=== PATIENT | male | born 1965 | race Hispanic/Latino ===

== ENCOUNTER 2018-02-26 15:57 | Inpatient (IN) | payer BC ==
[2018-02-26] MEDS ORDERED: Acetaminophen 500 MG TAB ONE (16:07)
[2018-02-26 16:48] LABS: Mean Corpuscular HGB CONC 34.5 g/dL (32.0-36.0); Mean Corpuscular Volume 89.9 fL (78.0-98.0); Mean Platelet Volume 7.7 fL (7.4-10.4); Platelet Count 257 thou/uL (130-400); RBC Distribution Width 13.9 % (11.5-14.5); Red Blood Cell (RBC) Count 4.19 mill/uL (4.70-6.10); White Blood Cell (WBC) Count 14.9 thou/uL (4.8-10.8)
--- NOTE | 2018-02-26 16:52 | RAD ---
SINGLE VIEW CHEST: Date: 02/26/18 COMPARISON: None. HISTORY: Cough and abscess. FINDINGS: Single view of the chest shows a normal sized cardiomediastinal silhouette. There is no evidence of c onsolidation, mass, or pleural effusion. The bones are unremarkable. IMPRESSION: No evidence of acute cardiopulmonary disease. POS: [facility]
[2018-02-26 17:06] LABS: Band 19 % (5-11); Lymphocytes 14 % (21-51); MDiff Complete? YES; Metamyelocyte 2 % (0-0); Monocytes 6 % (0-10); Myelocyte 1 % (0-0); Neutrophil 57 % (42-75)
[2018-02-26] MEDS ORDERED: Ibuprofen 800 MG TAB ONE (17:11)
[2018-02-26 17:14] LABS: ALT (SGPT) 13 U/L (8-55); AST (SGOT) 12 U/L (5-34); Alkaline Phosphatase 103 U/L (40-150); BUN (Urea Nitrogen) 23 mg/dL (8.4-25.7); Bilirubin, Total 0.8 mg/dL (0.2-1.2); Calc. Creatinine Clearance 0 mL/min (70-130); Carbon Dioxide 19 mmol/L (22-29); Estimated GFR-MDRD 44; Globulin 4.3 g/dL (2.4-3.5); Glucose 187 mg/dL (70-105); Protein, Total 8.3 g/dL (6.0-8.3)
[2018-02-26] MEDS ORDERED: Adacel (T-DAP) 0.5 ML VIAL ONE (17:15)
[2018-02-26 17:24] LABS: Anion Gap 16 mmol/L (10-20); Chloride 100 mmol/L (98-107); Potassium 4.2 mmol/L (3.5-5.1); Sodium 130 mmol/L (136-145)
[2018-02-26] MEDS ORDERED: Lidocaine 1% w/Epinephrine 1:100K 20 ML VIAL ONE (17:33)
[2018-02-26] MEDS ORDERED: Midazolam HCl 2 mg/2 ml Vial ONE (17:33)
[2018-02-26] MEDS ORDERED: Cefepime 2 GM in Sodium Chloride 0.9% 100 ML IVPB SCH (17:45)
[2018-02-26] MEDS ORDERED: Ondansetron ODT 4 MG TAB SL PRN (21:29)
[2018-02-26] MEDS ORDERED: Sodium Chloride 0.9% 1,000 ML IV SCH (21:29)
[2018-02-26] MEDS ORDERED: Ondansetron HCl/PF 4 MG/2 ML Vial IVP PRN (21:29)
[2018-02-26 21:51] VITALS: BMI 43.0
--- NOTE | 2018-02-26 22:15 | PDOC.FPRHP ---
- History of Present Illness Chief Complaint: Back pain and fever History of Present Illness: 53 yo M with a hx of DM2, HTN, and HLD presents to the ED with a 3 day hx of Rt mid back lesion with pain, erythema, and swelling. Two weeks prior had Left T5 distribution shingles. He thought maybe he had a pimple, was bitten by something , or the lesion began because of the shingles. Then he began having fever, body aches, chills, and notice the wound increasing in size. Denied n/v, CP, or SOB. + cough for past few days. In the ER met sepsis criteria with HR 130s, 102 F, WBC 14.9 (Bands 19). Cr was 1.65. The lesion was measured to be 16x10 cm. Lesion was ultrasounded and I&D was performed with 2 loops drains inserted, 150 mL removed. He was also give 3L of fluid; tyelenol and IBP; vanc and cefepime were started. - Allergies/Adverse Reactions Allergies Allergy/AdvReac Type Severity Reaction Status Date / Time No Known Allergies Allergy Verified 02/26/18 21:38 - Home Medications Medication Instructions Recorded Confirmed Type Amlodipine [Norvasc] 10 mg PO DAILY 02/26/18 02/26/18 History Aspirin 325 mg PO DAILY 02/26/18 02/26/18 History Insulin NPH/Reg Insulin Hm 55 unit SC 1700 02/26/18 02/26/18 History [HumuLIN 70/30] Insulin NPH/Reg Insulin Hm 60 unit SC 1100 02/26/18 02/26/18 History [HumuLIN 70/30] Losartan Potassium [Losartan 100 mg PO DAILY 02/26/18 02/26/18 History Potassium] Metoprolol Tartrate [Lopressor] 50 mg PO BID 02/26/18 02/26/18 History Pravastatin Sodium [Pravachol] 40 mg PO HS 02/26/18 02/26/18 History metFORMIN HCl 1,000 mg PO BID-WM 02/26/18 02/26/18 History - History PMHx:T2DM, HTN uncontrolled, HLD PSHx: None FHx: T2DM: Mother, brother Social: 1 PPD, 5 years, drinks about 10 beers each weekend, denies elicit drug use. 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 - Review of Systems General: reports: fever/chills, fatigue. denies: weight/appetite/sleep changes Eyes: denies: eye pain, vision changes ENT: denies: nasal congestion, rhinorrhea, other (denied sore throat) Respiratory: reports: cough. denies: congestion, shortness of breath, exercise intolerance Cardiovascular: denies: chest pain, palpitation, edema Gastrointestinal: denies: nausea, vomiting, diarrhea, constipation, abdominal pain, GI bleeding Genitourinary: reports: polyuria. denies: incontinence, dysuria, discharge Skin: reports: rashes, lesions, other (Rt mid back lesion swollen, warm, painful , and erythematous. Left side rash from recent shingles.). denies: jaundice, itching Musculoskeletal: denies: pain, tenderness, stiffness, swelling, arthritis/ arthralgias Neurological: denies: numbness, seizure, weakness Psychological: denies: anxiety, depression - Vital signs BP: [94/72] HR: [88] RR: [12] Tmax: [102.7] Pox: [98]% on [RA] Wt: [113.53] - Physical Exam Constitutional: NAD, awake, alert and oriented, well developed HEENT: normocephalic and atraumatic, PERRLA, MMM, other (upper and lower dentures) Neck: supple, no LAD, other (nontender) Chest: other (Purple macules along left T5 distribution from sternum to mid back ) Heart: RRR, normal S1/S2, no murmurs/rubs/gallops, pulses present, no edema Lungs: CTAB, no respiratory distress, good air movement, no wheezing, no retractions Abdomen: soft, non-tender Musculoskeletal: normal structure, normal tone, ROM grossly normal Neurological: no focal deficit Skin: other (16x10 cm lesion on Rt mid back. Erythematous, warm, indurated, weeping red-tinged fluid s/p I&D. [address] Psychiatric: normal mood and affect, good judgment and insight FMR H&P: Results - Labs Result Diagrams: 02/27/18 03:57 02/27/18 03:57 Lab results: WBC 14.9 thou/uL (4.8-10.8) H 02/26/18 16:23 Hgb 13.0 g/dL (14.0-18.0) L 02/26/18 16:23 Hct 37.6 % (42.0-52.0) L 02/26/18 16:23 MCV 89.9 fL (78.0-98.0) 02/26/18 16:23 Plt Count 257 thou/uL (130-400) 02/26/18 16:23 Band Neuts % (Manual) 19 % (5-11) H 02/26/18 16:23 Sodium 130 mmol/L (136-145) L 02/26/18 16:23 Potassium 4.2 mmol/L (3.5-5.1) 02/26/18 16:23 Chloride 100 mmol/L (98-107) 02/26/18 16:23 Carbon Dioxide 19 mmol/L (22-29) L 02/26/18 16:23 BUN 23 mg/dL (8.4-25.7) 02/26/18 16:23 Creatinine 1.65 mg/dL (0.6-1.3) H 02/26/18 16:23 Glucose 187 mg/dL (70-105) H 02/26/18 16:23 Lactic Acid 1.6 mmol/L (0.5-2.2) 02/26/18 16:23 Calcium 10.0 mg/dL (7.8-10.44) 02/26/18 16:23 Total Bilirubin 0.8 mg/dL (0.2-1.2) 02/26/18 16:23 AST 12 U/L (5-34) 02/26/18 16:23 ALT 13 U/L (8-55) 02/26/18 16:23 Alkaline Phosphatase 103 U/L (40-150) 02/26/18 16:23 Serum Total Protein 8.3 g/dL (6.0-8.3) 02/26/18 16:23 Albumin 4.0 g/dL (3.5-5.0) 02/26/18 16:23 - Radiology Interpretation Other Additional comment: US abscess Chest x-ray Additional comment: No acute cardiopulmonary findings FMR H&P: A/P - Problem List (1) Sepsis Current Visit: Yes Status: Acute Priority: High Code(s): A41.9 - SEPSIS, UNSPECIFIED ORGANISM Qualifiers: Sepsis type: sepsis due to unspecified organism Qualified Code(s): A41.9 - Sepsis, unspecified organism (2) Abscess of back Current Visit: Yes Status: Acute Code(s): L02.212 - CUTANEOUS ABSCESS OF BACK [ANY PART, EXCEPT BUTTOCK] Assessment and Plan: - (3) Hyponatremia Current Visit: Yes Status: Acute Code(s): E87.1 - HYPO-OSMOLALITY AND HYPONATREMIA (4) DM2 (diabetes mellitus, type 2) Current Visit: Yes Status: Chronic Priority: Medium (5) Hypertension Current Visit: Yes Status: Chronic Code(s): I10 - ESSENTIAL (PRIMARY) HYPERTENSION (6) PITA (acute kidney injury) Current Visit: Yes Status: Acute Code(s): N17.9 - ACUTE KIDNEY FAILURE, UNSPECIFIED (7) HLD (hyperlipidemia) Current Visit: Yes Status: Chronic Code(s): E78.5 - HYPERLIPIDEMIA, UNSPECIFIED (8) Morbid obesity with BMI of 40.0-44.9, adult Current Visit: Yes Status: Chronic Code(s): E66.01 - MORBID (SEVERE) OBESITY DUE TO EXCESS CALORIES; Z68.41 - BODY MASS INDEX (BMI) 40.0-44.9, ADULT - Plan Sepsis 2/2 abscess: -Septic on admission: Pulse 123, R 20, T 102.7, WBC 14.9 (B: 19). - Blood cx - culture and gram stain of abscess - 1 g vanc IV - 2 g cefepime IV - NaCl @ 125 ml/hr - Trending WBC (14.9 on 02/26) - f/up vanc trough tuesday morning - Monitor vitals (BP, fever) Abscess of back: -I&D with drains placed on 02/26 -Abx -fluids Hyponatremia: - NS T2DM --Aggressive SSI - continue home metformin - Check A1C - Consistent carb diet HTN -continue monitoring BP - continue home amlodipine and losartan - continue home aspirin PITA - fluids - monitor creatinine HLD - continue home pravastatin Morbid Obesity Code Status: full code FMR H&P: Upper Level - Pertinent history 53 yo M PMHx DM, HTN, HLD presents with 3 d h/o R mid back pain, swelling/ redness. He recently had shingles 3 weeks ago with lots of pain and itching and reports the area started as a pimple that continued to get bigger. +fever/body aches/chills/swelling/pain at site. - Pertinent findings Gen: awake, alert and oriented x3 HEENT: EOMI, conjunctiva non-injected CV: RRR, no murmur noted RESP: CTAB ABD: nondistended, bowel sounds present BACK: 16x10 cm abscess s/p drainage with [address] Ext: no cyanosis or edema - Plan Date/Time: 02/26/182214 I, Casi Wagner MD, PGY-3, have evaluated this patient and agree with findings/ plan as outlined by internal audit manager resident. Pertinent changes/additions are listed here. A/P: 53 yo M with PMHx poorly-controlled IDDM here with sepsis 2/2 abscess 1. Sepsis 2/2 R back abscess: Tachycardic, fever, elevated WBC, 19% bands. s/p 3L fluid, 1g vanc, cefepime, in ED. Blood cx, wound cx and gram stain pending. Continue IVLR @ 125 ml/hr. Wound care consulted. Consider consulting general surgery if abscess does not continue to improve. Will ask nursing to demarcate borders. 2. HTN: Home meds. Lisinopril held as patient was taking both lisinopril and losartan, though lisinopril is old script from 2017 and it is not clear if he is taking it daily. Will consider augmenting current regimen pending BP on floor. Recommend D/C lisinopril for the time being. 3. T2DM: Home 70/30 and aggressive SSI. ACHS accuchecks. 4. HLD: Home statin 5. PITA: Urine studies pending. Likely prerenal in setting of acute infection. 6. Hyponatremia: Urine studies pending. Likely combination of hyperglycemia and hypovolemic hyponatremia. Corrected Na 131. PPX: Lovenox, home omeprazole PRN if needed Attending Addendum - Attending Addendum Date/Time: 02/26/182224 I personally evaluated the patient and discussed the management with Dr. Bocanegra and Dr. Wagner I agree with the History, Examination, Assessment and Plan documented above with any addition or exceptions noted below. 53 yo male with multiple medical problems presents for evaluation of large abscess. s/p I&D in ER with placement of drains. IV antibiotics started. Wound culture sent. Will admit for IV antibiotics and wound care. Will possibly need further I&D pending resolution with antibiotics. Significantly large abscess by sono. Will need close glucose control to keep less than 180 or better. On review of home medications it was noted that the patient was taking both ACEI and ARB. ACEI was suppose to be discontinued in 2017. Will adjust ARB for BP goal. Estefania
[2018-02-26] MEDS ORDERED: Dextrose 50% Abboject 50 ML SYRINGE SLOW IVP PRN (22:31)
[2018-02-26] MEDS ORDERED: Dextrose 5% in Water 1,000 ML IV PRN (22:31)
[2018-02-26] MEDS ORDERED: HumaLOG 300 UNITS/3 ML VIAL SC PRN ×2 (22:31)
[2018-02-26] MEDS ORDERED: HUMULIN SC SCH (23:00)
[2018-02-26] MEDS ORDERED: PRAVASTATIN 40 MG PO SCH (23:00)
[2018-02-26] MEDS ORDERED: INSULIN SC SCH ×2 (23:00→23:15)
[2018-02-26 23:09] LABS: Hemoglobin A1c 9.3 % (4.0-6.0)
[2018-02-26] MEDS ORDERED: PRAVASTATIN 20 MG PO SCH (23:15)
[2018-02-26] MEDS ORDERED: NOVOLIN SC SCH (23:15)
[2018-02-26] MEDS: Sodium Chloride 0.9% 1,000 ML IV SCH (23:49)
[2018-02-27 02:18] LABS: Creatinine, Urine 111.59 mg/dL (63-166)
[2018-02-27] MEDS: Acetaminophen 325 MG TAB PO PRN ×2 (03:15→18:34)
[2018-02-27] MEDS ORDERED: Vancomycin HCl 1 GM in Premix Bag 1 BAG IVPB SCH (05:00)
[2018-02-27 05:07] LABS: #Eosinphils 0.2 thou/uL (0.0-0.7); #Lymphocytes 1.6 thou/uL (1.20-3.40); #Monocytes 1.4 thou/uL (0.11-0.59); #Neutrophils 9.2 thou/uL (1.40-6.50); %Basophils 0.3 % (0.0-1.0); %Eosinophils 1.5 % (0.0-10.0); %Lymphocytes 12.7 % (21.0-51.0); %Neutrophils 74.5 % (42.0-75.0); Hemoglobin 10.9 g/dL (14.0-18.0); Mean Corpuscular HGB CONC 34.3 g/dL (32.0-36.0); Mean Corpuscular Hemoglobin 31.1 pg (27.0-31.0); Mean Corpuscular Volume 90.5 fL (78.0-98.0); Mean Platelet Volume 7.7 fL (7.4-10.4); Platelet Count 210 thou/uL (130-400); RBC Distribution Width 13.9 % (11.5-14.5); Red Blood Cell (RBC) Count 3.51 mill/uL (4.70-6.10); White Blood Cell (WBC) Count 12.3 thou/uL (4.8-10.8)
[2018-02-27 05:40] LABS: Anion Gap 14 mmol/L (10-20); BUN (Urea Nitrogen) 20 mg/dL (8.4-25.7); Calc. Creatinine Clearance 103 mL/min (70-130); Calcium 8.5 mg/dL (7.8-10.44); Carbon Dioxide 19 mmol/L (22-29); Chloride 105 mmol/L (98-107); Estimated GFR-MDRD 57; Glucose 109 mg/dL (70-105); Potassium 3.9 mmol/L (3.5-5.1); Sodium 134 mmol/L (136-145)
--- NOTE | 2018-02-27 05:45 | PDOC.FM ---
- Subjective Subjective: Mr Murillo is a 53yo male with pmh of poorly controlled DMII, HTN, and HLD presenting with back abscess with a recent hx of shingles. Today he is feeling much better. Pain is well controlled with Morphine and tylenol, appetite is good and he has been eating a drinking. Reports some diarrhea this morning after receiving the antibiotics. No fevers overnight but reports feeling feverish and chills. - Objective MAR Reviewed: Yes Vital Signs & Weight: Vital Signs (12 hours) Temp Pulse Resp BP Pulse Ox 02/27/18 03:09 100.2 F H 96 18 107/71 96 02/26/18 23:39 98.6 F 87 18 95/64 96 02/26/18 21:30 98.5 F 85 18 114/74 96 Weight Weight 113.534 kg I&O: 02/25/18 02/26/18 02/27/18 06:59 06:59 06:59 Intake Total 1420 Balance 1420 Result Diagrams: 02/27/18 03:57 02/27/18 03:57 <Tova Weaver - Last Filed: 02/27/18 11:49> - Objective Vital Signs & Weight: Vital Signs (12 hours) Temp Pulse Resp BP Pulse Ox 02/27/18 11:11 99.6 F 84 18 111/72 96 02/27/18 08:00 99.1 F 90 18 123/78 97 02/27/18 07:23 99.1 F 90 18 105/66 97 Weight Admit Weight 113.534 kg Weight 113.534 kg I&O: 02/26/18 02/27/18 02/28/18 06:59 06:59 06:59 Intake Total 1420 Balance 1420 Result Diagrams: 02/27/18 03:57 02/27/18 03:57 <Milton Crooks - Last Filed: 02/27/18 15:12> Phys Exam - Physical Examination Constitutional: NAD HEENT: moist MMs Respiratory: no wheezing, clear to auscultation bilateral Cardiovascular: RRR, no significant murmur Gastrointestinal: soft, non-tender, positive bowel sounds Musculoskeletal: no edema Neurological: non-focal Psychiatric: A&O x 3 Skin: cap refill <2 seconds Deviation from normal: [id number] lesion on Right mid back. Covered with a dressing with -: serous fluid on dressing <Tova Weaver - Last Filed: 02/27/18 11:49> Dx/Plan (1) Sepsis Code(s): A41.9 - SEPSIS, UNSPECIFIED ORGANISM Status: Acute QualifierTitle: Sepsis type: sepsis due to unspecified organism Qualified Code(s): A41.9 - Sepsis, unspecified organism (2) Abscess of back Code(s): L02.212 - CUTANEOUS ABSCESS OF BACK [ANY PART, EXCEPT BUTTOCK] Status : Acute (3) DM2 (diabetes mellitus, type 2) Status: Chronic (4) PITA (acute kidney injury) Code(s): N17.9 - ACUTE KIDNEY FAILURE, UNSPECIFIED Status: Acute (5) Hyponatremia Code(s): E87.1 - HYPO-OSMOLALITY AND HYPONATREMIA Status: Acute (6) HLD (hyperlipidemia) Code(s): E78.5 - HYPERLIPIDEMIA, UNSPECIFIED Status: Chronic (7) Hypertension Code(s): I10 - ESSENTIAL (PRIMARY) HYPERTENSION Status: Chronic (8) Morbid obesity with BMI of 40.0-44.9, adult Code(s): E66.01 - MORBID (SEVERE) OBESITY DUE TO EXCESS CALORIES; Z68.41 - BODY MASS INDEX (BMI) 40.0-44.9, ADULT Status: Chronic (9) Tobacco abuse Code(s): Z72.0 - TOBACCO USE Status: Acute - Plan Plan: Mr Murillo is a 53yo male with pmh of poorly controlled DMII, HTN, and HLD presents with sepsis 2/2 to back abscess, hyponatremia, PITA, and recent hx of shingles. 1. Sepsis - 2/2 R back abscess: Tachycardic, fever, elevated WBC, 19% bands - s/p 3L fluid, 1g vanc, 2g cefepime, in ED - lactic acid 1.6 - Blood cx and gram stain pending. Continue IVLR @ 125 ml/hr - Wound care consulted - Consider consulting general surgery if abscess does not continue to improve - Will ask nursing to demarcate borders - Trending WBC (14.9 on 02/26)->12.3 - Continue Vanc - F/u Vanc trough Wednesday 02/28 - Wound cx shows Gram + cocci in pairs and clusters - Can d/c Cefepime - Adjust Vanc dosing - D/c maintenance fluids - Wound Care nursing protocol - Await sensitivities prior to d/c - CM to arrange outpatient wound care 2. HTN - Continue Home meds: metoprolol, amlodipine and losartan - Lisinopril held as patient was taking both lisinopril and losartan, though lisinopril is old script from 2017 and it is not clear if he is taking it daily - Will consider augmenting current regimen pending BP on floor - Recommend D/C lisinopril for the time being 3. T2DM - poorly controlled - A1c: 9.3 - Home 70/30 55U and aggressive SSI - ACHS accuchecks - Continue home metformin 4. HLD - Home statin 5. PITA - FeNa 0.5%, Pre-renal - Likely prerenal in setting of acute infection - continue fluids 6. Hyponatremia -improving - Likely combination of hyperglycemia and hypovolemic hyponatremia- Corrected Na 131. - Urine Na 62 Urine Cr 111 7. 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 Weaver I agree with the History, Examination, Assessment and Plan documented above with any addition or exceptions noted below. Patient with minimal drainage from martina drains , stressed importance of BS control. Patient should be able to d/ c home soon with results C&S and conversion po RX and outpatient f/u with wound management. <Milton Crooks - Last Filed: 02/27/18 15:12>
[2018-02-27] MEDS ORDERED: Cefepime 2 GM in Sodium Chloride 0.9% 100 ML IVPB SCH ×2 (06:00→18:00)
[2018-02-27] MEDS: METFORMIN HCL 1000 MG PO SCH ×2 (07:57→18:28)
[2018-02-27] MEDS: Enoxaparin Sodium 40 MG/0.4 ML SYRINGE SC SCH (07:58)
[2018-02-27] MEDS: Amlodipine 10 MG TAB PO SCH (07:59)
[2018-02-27] MEDS: Losartan Potassium 100 MG PO SCH (08:00)
[2018-02-27] MEDS: ASPIRIN 325MG TAB PO SCH (08:00)
[2018-02-27] MEDS: Metoprolol Tartrate 50 MG TAB PO SCH ×2 (08:01→19:59)
[2018-02-27] MEDS: Sodium Chloride 0.9% 1,000 ML IV SCH (08:05)
[2018-02-27] MEDS ORDERED: INSULIN SC SCH ×2 (11:00→17:00)
[2018-02-27] MEDS ORDERED: HUMULIN SC SCH ×2 (11:00→17:00)
[2018-02-27] MEDS: NOVOLIN SC SCH ×2 (11:21→18:29)
[2018-02-27] MEDS: INSULIN SC SCH ×2 (11:21→18:29)
[2018-02-27] MEDS: Vancomycin HCl 1 GM in Premix Bag 1 BAG IVPB SCH ×2 (14:38→21:13)
[2018-02-27] MEDS: Atorvastatin Calcium 10 MG TAB PO SCH (19:59)
[2018-02-27] MEDS ORDERED: PRAVASTATIN 40 MG PO SCH (21:00)
[2018-02-27 21:11] LABS: Vancomycin, Trough 18.5 ug/mL
[2018-02-28 04:41] LABS: #Eosinphils 0.2 thou/uL (0.0-0.7); #Lymphocytes 1.7 thou/uL (1.20-3.40); #Monocytes 0.9 thou/uL (0.11-0.59); #Neutrophils 6.8 thou/uL (1.40-6.50); %Basophils 0.4 % (0.0-1.0); %Eosinophils 2.1 % (0.0-10.0); %Lymphocytes 17.3 % (21.0-51.0); %Monocytes 9.7 % (0.0-10.0); %Neutrophils 70.6 % (42.0-75.0); Hemoglobin 11.4 g/dL (14.0-18.0); Mean Corpuscular HGB CONC 34.1 g/dL (32.0-36.0); Mean Corpuscular Hemoglobin 30.8 pg (27.0-31.0); Mean Corpuscular Volume 90.2 fL (78.0-98.0); Mean Platelet Volume 7.5 fL (7.4-10.4); Platelet Count 229 thou/uL (130-400); RBC Distribution Width 13.8 % (11.5-14.5); Red Blood Cell (RBC) Count 3.71 mill/uL (4.70-6.10); White Blood Cell (WBC) Count 9.6 thou/uL (4.8-10.8)
[2018-02-28 05:11] LABS: Anion Gap 14 mmol/L (10-20); BUN (Urea Nitrogen) 14 mg/dL (8.4-25.7); Calc. Creatinine Clearance 120 mL/min (70-130); Calcium 9.1 mg/dL (7.8-10.44); Carbon Dioxide 21 mmol/L (22-29); Chloride 103 mmol/L (98-107); Estimated GFR-MDRD 68; Glucose 79 mg/dL (70-105); Potassium 3.7 mmol/L (3.5-5.1); Sodium 134 mmol/L (136-145)
--- NOTE | 2018-02-28 05:30 | PDOC.FM ---
- Subjective Subjective: Mr Murillo is a 53yo male here with back abscess. Today he is feeling well, denies n/v/d, fevers and chills. Pain is well controlled. Also reports he obtains his 70/30 at [facility] because it is cheaper than the pharmacy, there had been concern about compliance and being able to obtain his insulin. - Objective MAR Reviewed: Yes Vital Signs & Weight: Vital Signs (12 hours) Temp Pulse Resp BP Pulse Ox 02/27/18 19:55 99.0 F 89 18 95 02/27/18 19:26 99.0 F 89 18 126/76 95 Weight Admit Weight 113.534 kg Weight 113.534 kg I&O: 02/26/18 02/27/18 02/28/18 06:59 06:59 06:59 Intake Total 1420 Balance 1420 Result Diagrams: 02/28/18 03:47 02/28/18 03:47 <Tova Weaver - Last Filed: 02/28/18 12:45> - Objective Vital Signs & Weight: Vital Signs (12 hours) Temp Pulse Resp BP Pulse Ox 02/28/18 07:26 98.9 F 84 16 112/75 96 Weight Admit Weight 113.534 kg Weight 113.534 kg I&O: 02/27/18 02/28/18 03/01/18 06:59 06:59 06:59 Intake Total 1420 900 180 Balance 1420 900 180 Result Diagrams: 02/28/18 03:47 02/28/18 03:47 <Poli Nowak - Last Filed: 02/28/18 12:52> Phys Exam - Physical Examination Constitutional: NAD HEENT: moist MMs Respiratory: clear to auscultation bilateral Cardiovascular: RRR Gastrointestinal: soft, non-tender, positive bowel sounds Musculoskeletal: no edema, pulses present Psychiatric: normal affect, A&O x 3 Skin: cap refill <2 seconds Deviation from normal: Wound covered with dressing. [address] -: Draining minimal serous fluid <Tova Weaver - Last Filed: 02/28/18 12:45> Dx/Plan (1) Sepsis Code(s): A41.9 - SEPSIS, UNSPECIFIED ORGANISM Status: Acute QualifierTitle: Sepsis type: sepsis due to unspecified organism Qualified Code(s): A41.9 - Sepsis, unspecified organism (2) Abscess of back Code(s): L02.212 - CUTANEOUS ABSCESS OF BACK [ANY PART, EXCEPT BUTTOCK] Status : Acute (3) DM2 (diabetes mellitus, type 2) Status: Chronic (4) PITA (acute kidney injury) Code(s): N17.9 - ACUTE KIDNEY FAILURE, UNSPECIFIED Status: Acute (5) Hyponatremia Code(s): E87.1 - HYPO-OSMOLALITY AND HYPONATREMIA Status: Acute (6) HLD (hyperlipidemia) Code(s): E78.5 - HYPERLIPIDEMIA, UNSPECIFIED Status: Chronic (7) Hypertension Code(s): I10 - ESSENTIAL (PRIMARY) HYPERTENSION Status: Chronic (8) Morbid obesity with BMI of 40.0-44.9, adult Code(s): E66.01 - MORBID (SEVERE) OBESITY DUE TO EXCESS CALORIES; Z68.41 - BODY MASS INDEX (BMI) 40.0-44.9, ADULT Status: Chronic (9) Tobacco abuse Code(s): Z72.0 - TOBACCO USE Status: Acute - Plan Plan: Mr Murillo is a 53yo male with pmh of poorly controlled DMII, HTN, and HLD presents with sepsis 2/2 to back abscess, hyponatremia, PITA, and recent hx of shingles. 1. Sepsis - 2/2 R back abscess: Tachycardic, fever, elevated WBC, 19% bands - s/p 3L fluid, 1g vanc, 2g cefepime, in ED - lactic acid 1.6 - Wound care consulted - Trending WBC (14.9 on 02/26)->12.3 - Wound cx shows Gram + cocci in pairs and clusters - D/c'ed Cefepime 02/27 - Adjusted Vanc dosing 02/27, Continue Vanc - Trough 18.9 - Wound Care nursing protocol - Await sensitivities prior to d/c - CM to arrange outpatient wound care - Blood Cx NGTD 2 days - Minimal drainage from broderick drains - plan to transition to PO antibiotics once sensitivities result - F/u with wound management for outpatient care 2. HTN - Continue Home meds: metoprolol, amlodipine and losartan - Lisinopril held as patient was taking both lisinopril and losartan, though lisinopril is old script from 2017 and it is not clear if he is taking it daily - Will consider augmenting current regimen pending BP on floor - Recommend D/C lisinopril for the time being 3. T2DM - poorly controlled - A1c: 9.3 - Home 70/30 60U @1100, 55U @1600 and aggressive SSI - ACHS accuchecks - Continue home metformin 4. HLD - Home statin 5. PITA - Resolved - FeNa 0.5%, Pre-renal - Likely prerenal in setting of acute infection - continue fluids 6. Hyponatremia -improving - Likely combination of hyperglycemia and hypovolemic hyponatremia- Corrected Na 131. - Urine Na 62 Urine Cr 111 7. 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 Weaver and team. I agree with and repeated the History, Examination, Assessment and Plan documented above with any addition or exceptions noted below. Abscess improved. Relatively dry dressing. Drains in place. Transition to PO as he is doing phenomenally and plan for discharge with follow up. <Poli Nowak - Last Filed: 02/28/18 12:52>
[2018-02-28] MEDS: Vancomycin HCl 1 GM in Premix Bag 1 BAG IVPB SCH ×3 (05:49→23:08)
[2018-02-28] MEDS: METFORMIN HCL 1000 MG PO SCH ×2 (08:17→16:56)
[2018-02-28] MEDS: Amlodipine 10 MG TAB PO SCH (08:18)
[2018-02-28] MEDS: ASPIRIN 325MG TAB PO SCH (08:18)
[2018-02-28] MEDS: Losartan Potassium 100 MG PO SCH (08:19)
[2018-02-28] MEDS: Metoprolol Tartrate 50 MG TAB PO SCH ×2 (08:20→20:41)
[2018-02-28] MEDS: Enoxaparin Sodium 40 MG/0.4 ML SYRINGE SC SCH (08:34)
[2018-02-28] MEDS: INSULIN SC SCH ×2 (11:07→17:00)
[2018-02-28] MEDS: NOVOLIN SC SCH ×2 (11:07→17:00)
[2018-02-28] MEDS: Atorvastatin Calcium 10 MG TAB PO SCH (20:42)
[2018-02-28 22:01] LABS: Vancomycin, Trough 23.2 ug/mL
[2018-03-01] MEDS ORDERED: Vancomycin HCl 1.25 GM in Sodium Chloride 0.9% 250 ML 250 ML IVPB SCH (02:00)
--- NOTE | 2018-03-01 05:43 | PDOC.FM ---
- Subjective Subjective: Mr Murillo is a 53yo male here with back abscess. Today he is feeling well, denies DAVIS, n/v/d, fevers and chills. Pain is well controlled. - Objective MAR Reviewed: Yes Vital Signs & Weight: Vital Signs (12 hours) Temp Pulse Resp BP Pulse Ox 02/28/18 19:45 98.4 F 84 20 96 02/28/18 19:33 98.4 F 84 20 135/79 96 Weight Admit Weight 113.534 kg Weight 113.534 kg I&O: 02/27/18 02/28/18 03/01/18 06:59 06:59 06:59 Intake Total 1420 900 600 Balance 1420 900 600 Result Diagrams: 03/01/18 05:12 03/01/18 05:12 <Tova Weaver - Last Filed: 03/01/18 09:18> - Objective Vital Signs & Weight: Vital Signs (12 hours) Temp Pulse Resp BP Pulse Ox 03/01/18 07:49 97.9 F 78 16 136/87 97 Weight Admit Weight 113.534 kg Weight 113.534 kg I&O: 02/28/18 03/01/18 03/02/18 06:59 06:59 06:59 Intake Total 900 600 480 Balance 900 600 480 Result Diagrams: 03/01/18 05:12 03/01/18 05:12 <Poli Nowak - Last Filed: 03/01/18 12:51> Phys Exam - Physical Examination Constitutional: NAD HEENT: moist MMs Respiratory: no wheezing, clear to auscultation bilateral Cardiovascular: RRR Gastrointestinal: soft, non-tender, positive bowel sounds Musculoskeletal: no edema, pulses present Neurological: moves all 4 limbs Psychiatric: normal affect, A&O x 3 Skin: cap refill <2 seconds <Tova Weaver - Last Filed: 03/01/18 09:18> Dx/Plan (1) Sepsis Code(s): A41.9 - SEPSIS, UNSPECIFIED ORGANISM Status: Acute QualifierTitle: Sepsis type: sepsis due to unspecified organism Qualified Code(s): A41.9 - Sepsis, unspecified organism (2) Abscess of back Code(s): L02.212 - CUTANEOUS ABSCESS OF BACK [ANY PART, EXCEPT BUTTOCK] Status : Acute (3) DM2 (diabetes mellitus, type 2) Status: Chronic (4) PITA (acute kidney injury) Code(s): N17.9 - ACUTE KIDNEY FAILURE, UNSPECIFIED Status: Acute (5) Hyponatremia Code(s): E87.1 - HYPO-OSMOLALITY AND HYPONATREMIA Status: Acute (6) HLD (hyperlipidemia) Code(s): E78.5 - HYPERLIPIDEMIA, UNSPECIFIED Status: Chronic (7) Hypertension Code(s): I10 - ESSENTIAL (PRIMARY) HYPERTENSION Status: Chronic (8) Morbid obesity with BMI of 40.0-44.9, adult Code(s): E66.01 - MORBID (SEVERE) OBESITY DUE TO EXCESS CALORIES; Z68.41 - BODY MASS INDEX (BMI) 40.0-44.9, ADULT Status: Chronic (9) Tobacco abuse Code(s): Z72.0 - TOBACCO USE Status: Acute - Plan Plan: Mr Murillo is a 53yo male with pmh of poorly controlled DMII, HTN, and HLD presents with sepsis 2/2 to back abscess, hyponatremia, PITA, and recent hx of shingles. 1. Sepsis - 2/2 R back abscess: Tachycardic, fever, elevated WBC, 19% bands - s/p 3L fluid, 1g vanc, 2g cefepime, in ED - lactic acid 1.6 - Wound care consulted - Trending WBC (14.9 on 02/26)->12.3 - Wound cx shows Gram + cocci in pairs and clusters - D/c'ed Cefepime 02/27 - Adjusted Vanc dosing 02/27, last trough 23.2 - Wound Care nursing protocol - Await sensitivities prior to d/c - CM to arrange outpatient wound care - Blood Cx NGTD 2 days - Minimal drainage from martina drains - F/U with Dr Mcguire outpatient - Consider removing martina drains prior to d/c - Stop Vanc, Start Cipro 500mg BID for 10 days - F/u with wound management for outpatient care 2. HTN - Continue Home meds: metoprolol, amlodipine and losartan - Lisinopril held as patient was taking both lisinopril and losartan, though lisinopril is old script from 2017 and it is not clear if he is taking it daily 3. T2DM - poorly controlled - A1c: 9.3 - Home 70/30 60U @1100, 55U @1600 and aggressive SSI - ACHS accuchecks - Continue home metformin 4. HLD - Home statin 5. PITA - Resolved - FeNa 0.5%, Pre-renal - Likely prerenal in setting of acute infection 6. Hyponatremia -improving - Likely combination of hyperglycemia and hypovolemic hyponatremia- Corrected Na 131. - Urine Na 62 Urine Cr 111 7. 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 Weaver and team. I agree with and repeated the History, Examination, Assessment and Plan documented above with any addition or exceptions noted below. Plan for d/c today and f/u in our procedure clinic Tuesday. Plan for outpatient bactrim. <Poli Nowak - Last Filed: 03/01/18 12:51>
[2018-03-01 05:45] LABS: #Eosinphils 0.2 thou/uL (0.0-0.7); #Lymphocytes 1.3 thou/uL (1.20-3.40); #Monocytes 0.7 thou/uL (0.11-0.59); #Neutrophils 5.7 thou/uL (1.40-6.50); %Basophils 0.4 % (0.0-1.0); %Eosinophils 2.2 % (0.0-10.0); %Monocytes 8.9 % (0.0-10.0); %Neutrophils 72.4 % (42.0-75.0); Hemoglobin 11.3 g/dL (14.0-18.0); Mean Corpuscular HGB CONC 33.1 g/dL (32.0-36.0); Mean Corpuscular Hemoglobin 29.6 pg (27.0-31.0); Mean Corpuscular Volume 89.6 fL (78.0-98.0); Mean Platelet Volume 7.2 fL (7.4-10.4); Platelet Count 277 thou/uL (130-400); RBC Distribution Width 13.8 % (11.5-14.5); Red Blood Cell (RBC) Count 3.81 mill/uL (4.70-6.10); White Blood Cell (WBC) Count 7.9 thou/uL (4.8-10.8)
[2018-03-01 05:53] LABS: Anion Gap 12 mmol/L (10-20); BUN (Urea Nitrogen) 14 mg/dL (8.4-25.7); Calc. Creatinine Clearance 112 mL/min (70-130); Calcium 9.1 mg/dL (7.8-10.44); Carbon Dioxide 23 mmol/L (22-29); Chloride 103 mmol/L (98-107); Estimated GFR-MDRD 63; Glucose 116 mg/dL (70-105); Potassium 3.6 mmol/L (3.5-5.1); Sodium 134 mmol/L (136-145)
[2018-03-01 07:51] VITALS: BP 136/87; TEMP 97.9
[2018-03-01] MEDS: METFORMIN HCL 1000 MG PO SCH (08:41)
[2018-03-01] MEDS: Enoxaparin Sodium 40 MG/0.4 ML SYRINGE SC SCH (08:41)
[2018-03-01] MEDS: Amlodipine 10 MG TAB PO SCH (08:42)
[2018-03-01] MEDS: ASPIRIN 325MG TAB PO SCH (08:43)
[2018-03-01] MEDS: Losartan Potassium 100 MG PO SCH (08:44)
[2018-03-01] MEDS: Metoprolol Tartrate 50 MG TAB PO SCH (08:46)
[2018-03-01] MEDS: NOVOLIN SC SCH (12:08)
[2018-03-01] MEDS: INSULIN SC SCH (12:08)
--- NOTE | 2018-03-02 08:59 | DIS-2 ---
DATE OF ADMISSION: 02/26/2018 DATE OF DISCHARGE: 03/01/2018 RESIDENT: Tova Weaver MD ADMITTING ATTENDING: Charis Fraser MD DISCHARGE ATTENDING: Poli Nowak MD PROCEDURES: Incision and drainage in ED PRIMARY DIAGNOSIS: Sepsis 2/2 to back abscess SECONDARY DIAGNOSES: Hyponatremia Acute kidney injury Recent history of shingles Poorly controlled type 2 diabetes Hypertension Hyperlipidemia. DISCHARGE MEDICATIONS: Pravastatin 20 mg HS Amlodipine 10 mg daily Aspirin 325 mg daily Losartan 100 mg daily Metformin 1000 mg BID Metoprolol 50 mg BID Bactrim 1 tab BID for 10 days NPH 60 units at 1100 NPH 55 units at 2700 HISTORY OF PRESENT ILLNESS AND HOSPITAL COURSE: This is a 53-year-old male with a past medical history of diabetes, hypertension, hyperlipidemia presenting to the ED with a 3-day history of right mid back pain with a lesion, erythema, swelling, fever, chills, body aches. Two weeks prior, he had shingles in a left T5 distribution in the same area as the back abscess. He saw Dr. Mcguire in clinic and was treated with acyclovir. When he was in the ED, he met sepsis criteria with heart rate in the 130s, temperature of 102, and a white blood cell count of 14.9. He also had an PITA, creatinine of 1.65, this resolved. The abscess in the ED was measured to be 16 x 10 cm. Ultrasound and I&D was performed. They inserted 2 Broderick loop drains and removed 150 mL. They started Vancomycin and cefepime. When he was admitted to the floor, cefepime was discontinued. His condition improved and pain was well controlled with morphine and Tylenol. His leukocytes trended down to normal and ultimately Vancomycin was switched to oral Bactrim before discharging home. His diabetes was poorly controlled at admission, during his hospital stay we continued his home dose insulin and his blood sugars were well controlled. Hyperlipidemia & Hypertension were stable, we continued his home medications. DISPOSITION: Stable. LOCATION: Home. DIET: Heart healthy, low sodium, diabetic. ACTIVITY: As tolerated FOLLOWUP: Follow up in the Procedure [facility] on Tuesday and with Dr. Mcguire in his clinic in 7 days. [facility]
== END 2018-03-01 14:05 | disposition home or self-care (01) | DRG 872 ==
LOC: ERS 15:57 → T4-A 19:00 → OBSVTOIN 19:00
PROVIDERS: ADMIT Student in an Organized Health Care Education/Training Program; ATTEND Student in an Organized Health Care Education/Training Program
DX: A41.9 Sepsis, unspecified organism (principal); L02.212 Cutaneous abscess of back [any part, except buttock and flank]; N17.9 Acute kidney failure, unspecified; E87.1 Hypo-osmolality and hyponatremia; Z68.41 Body mass index [BMI] 40.0-44.9, adult; E11.9 Type 2 diabetes mellitus without complications; I10 Essential (primary) hypertension; E66.01 Morbid (severe) obesity due to excess calories; F17.210 Nicotine dependence, cigarettes, uncomplicated
CPT/HCPCS: 10060; 36415; 36416; 71045; 80048; 80053; 80202; 82570; 83036; 83605; 84300; 85025; 87040; 87070; 87077; 87186; 87205; 90471; 90715; 96361; 96365; 96366; 96367; 96375; A4216; J0692; J1650; J2001; J2250; J2270; J3370; J7050